=== PATIENT | male | born 1995 | race Two or more races ===

== ENCOUNTER → 2018-07-09 | Day surgery (SDC) | payer OTHER ==
[~2018-07-09] MED LIST: FENTANYL CITRATE/PF 100MCG/2 ML INJ ONE; LIDOCAINE HCL 2% LOCAL INJ 5 ML SDV VIAL INJ ONE; MIDAZOLAM HCL 2 MG/2 ML VIAL ONE; PROPOFOL IV EMULSION 10 MG/ML 50 ML VIAL ONE
[2018-07-09 12:20] VITALS: BP 119/88
== END | disposition home or self-care (01) ==
LOC: OR 09:22
PROVIDERS: ATTEND Internal Medicine Gastroenterology
DX: K92.1 Melena (principal); K64.8 Other hemorrhoids; F41.9 Anxiety disorder, unspecified
CPT/HCPCS: 45378; J2001; J2250; 45380